=== PATIENT | female | born 1970 | race African-American/Black ===

== ENCOUNTER 2022-08-05 13:46 | Emergency (ER) | payer OTHER ==
[~2022-08-05] VITALS: Ht 167.6 cm; Wt 93.0 kg
[~2022-08-05 13:46] MED LIST: ASPIRIN; IBUP-2216 PO; MOTRIN; NAPR375T2 PO; TYLENOL
[2022-08-05 14:31] VITALS: BP 133/70
--- NOTE | 2022-08-05 15:11 | NUR ---
PT AMBULATED TO BED 11
[2022-08-05 15:15] LABS: BASOPHILS # (AUTO) 0.1 K/uL (0.00-0.22); BASOPHILS % (AUTO) 0.7 % (0.0-2.0); EOSINOPHILS # (AUTO) 0.1 K/uL (0-0.4); EOSINOPHILS % (AUTO) 1.6 % (0.0-4.0); HEMATOCRIT 46.9 % (36-48); HEMOGLOBIN 15.2 g/dL (12.0-16.0); LYMPHOCYTES # (AUTO) 2.1 K/uL (2.5-16.5); LYMPHOCYTES % (AUTO) 27.8 % (20.5-51.1); MEAN CORPUSCULAR HEMOGLOBIN 25 pg (27-31); MEAN CORPUSCULAR HGB CONC 32 g/dL (33-37); MEAN CORPUSCULAR VOLUME 78.2 fL (80-94); MONOCYTES # (AUTO) 0.5 K/uL (0.8-1.0); MONOCYTES % (AUTO) 6.4 % (1.7-9.3); NEUTROPHILS # (AUTO) 4.9 K/uL (1.8-7.7); NEUTROPHILS % (AUTO) 63.5 % (42.2-75.2); PLATELET COUNT (AUTO) 209 K/uL (140-450); RED CELL DISTRIBUTION WIDTH 14.5 % (11.6-13.7); WHITE BLOOD COUNT (AUTO) 7.7 K/uL (4.8-10.8)
[2022-08-05] MEDS: NACL 0.9% 1,000 ML IV SCH ×2 (15:19→16:22)
--- NOTE | 2022-08-05 15:20 | NUR ---
IV ESTABLISHED. LAB DRAWN. IVF INITIATED. FAMILY AT .
[2022-08-05 15:29] LABS: ALBUMIN 3.8 g/dL (3.4-5.0); ANION GAP 12.9 (8-16); CARBON DIOXIDE 31.2 mmol/L (21-32); CREATININE 1.2 mg/dL (0.6-1.3); POTASSIUM 4.1 mmol/L (3.5-5.1); TOTAL BILIRUBIN 0.3 mg/dL (0.0-1.0)
[2022-08-05] MEDS ORDERED: INSULIN REGULAR, HUMAN 100 UNIT/ML VIAL IVP ONE (15:55)
[2022-08-05] MEDS ORDERED: BLOO-224 INH ×2 (16:06→18:48)
--- NOTE | 2022-08-05 17:34 | NUR ---
ALL MEDS GIVEN. PT SELF REMOVES MONITORING EQUIPMENT. NO CURRENT B/P. TO OBTAIN UPON DISCHARGE. REPEAT ACCUCHECK REPORTED TO GIUSEPPE.
[2022-08-05 18:04] VITALS: BP 145/89
== END 2022-08-05 18:05 | disposition home or self-care (01) ==
LOC: MED 13:46
DX: E11.65 Type 2 diabetes mellitus with hyperglycemia (principal); Z87.891 Personal history of nicotine dependence; Z79.899 Other long term (current) drug therapy; Z79.1 Long term (current) use of non-steroidal anti-inflammatories (NSAID)
CPT/HCPCS: 36415; 36600; 71045; 80053; 82803; 82948; 83880; 84484; 85025; 87040; 96361; 96374; 99285; J1815; J7030; 99284